=== PATIENT | male | born 1990 | race Caucasian/White ===

== ENCOUNTER 2023-04-19 12:25 | Emergency (ER) | payer OTHER ==
[2023-04-19] MEDS ORDERED: Acetaminophen 500 MG TAB ONE (13:12)
[2023-04-19] MEDS ORDERED: Ibuprofen 800 MG TAB ONE (13:13)
[2023-04-19] MEDS ORDERED: Dexameth. Sod Phosp. 10 MG/ML (CHEMO USE ONLY) ONE (13:13)
[2023-04-19 14:43] LABS: Bilirubin Negative (Negative); Blood, Urine Moderate (Negative); Glucose, Urine (Dipstick) Negative (Negative); Ketone, Urine Negative (Negative); Leukocyte Negative (Negative); Nitrite Negative (Negative); Protein, Urine (Dipstick) Trace mg/dL (Neg-Trace)
[2023-04-19 14:50] LABS: Clarity Clear (Clear); Specific Gravity, Urine 1.028 (1.002-1.036)
[2023-04-19 14:54] LABS: CAUTI Indications for Culture Dysuria,urgency,freq; RBC/HPF 0-3 HPF (0-3); WBC/HPF 0-3 HPF (0-3)
[2023-04-19 14:55] LABS: Bacteria/HPF Rare-Few HPF (None Seen); Squamous Epithelial None Seen HPF (0-3); Urine Culture Reflex No No
== END 2023-04-19 16:05 | disposition home or self-care (01) ==
LOC: ERS 12:25
DX: J03.00 Acute streptococcal tonsillitis, unspecified (principal)
CPT/HCPCS: 74176; 81001; 87430; J1100